=== PATIENT | female | born 1965 | race Caucasian/White ===

== ENCOUNTER 2022-05-23 19:48 | Emergency (ER) | payer BC ==
[~2022-05-23] VITALS: Ht 170.2 cm; Wt 118.2 kg
[2022-05-24] MEDS ORDERED: HYDROCODON-ACE1 EA10 PO ×2 (00:36→02:27)
[2022-05-24] MEDS ORDERED: CYCLOBENZAPRINE10 MG PO ×2 (00:39→02:27)
[2022-05-24] MEDS ORDERED: PREDNISONE20 MG PO ×2 (00:39→02:27)
--- NOTE | 2022-05-24 19:40 | EKG ---
[facility] [address] [facility] [place], [place] [address] Signed Normal sinus rhythm Normal ECG No previous ECGs available Confirmed by LENIN TAVERAS MD [id number] on 05/24/2022 7:39:56 PM Electronically Signed By: LENIN TAVERAS MD 05/24/221939 PATIENT NAME: ANSON DOMINGO Electrocardiogram DATE OF : 63 PHYSICIAN: LENIN TAVERAS MD REPORT #: [id number] REPORT IS CONFIDENTIAL AND NOT TO BE RELEASED WITHOUT AUTHORIZATION
== END 2022-05-24 02:28 | disposition home or self-care (01) ==
LOC: ED 19:48
DX: S29.012A Strain of muscle and tendon of back wall of thorax, initial encounter (principal); X58.XXXA Exposure to other specified factors, initial encounter; Z88.0 Allergy status to penicillin; Z88.6 Allergy status to analgesic agent; Z88.5 Allergy status to narcotic agent; Z20.822 Contact with and (suspected) exposure to COVID-19
CPT/HCPCS: 36415; 71045; 80053; 81003; 83690; 84484; 85025; 85379; 85610; 87502; 93005; 93010; 96374; 96375; 99284-25; A9270; J1100; J1170; J2405; U0003